=== PATIENT | male | born 1965 | race Hispanic/Latino ===

== ENCOUNTER → 2022-08-22 | Outpatient (CLI) | payer BC, OTHER ==
[~2022-08-22] MED LIST: IOHEXOL 350 MG/ML 100ML INFUS..BTL IV ONE
== END | disposition home or self-care (01) ==
LOC: RAH 09:39
PROVIDERS: ATTEND Family Medicine
DX: R19.00 Intra-abdominal and pelvic swelling, mass and lump, unspecified site (principal)
CPT/HCPCS: 74170; Q9967